=== PATIENT | female | born 1960 | race Caucasian/White ===

== ENCOUNTER → 2016-10-06 | Outpatient (CLI) | payer BC ==
[~2016-10-06] MED LIST: ATOR-24 PO
[2016-10-06 12:25] LABS: HEMATOCRIT 40.3 % (37-47); MEAN CELL VOLUME 88.4 fL (80-100); MEAN CORPUSCULAR HEMOGLOBIN 30.7 pg (25-34); MEAN CORPUSCULAR HGB CONC 34.7 g/dl (32-36); MEAN PLATELET VOLUME 11.5 fL (7.4-10.4); PLATELET COUNT 262 K/uL (130-400); RED BLOOD COUNT 4.56 M/uL (4.2-5.4); WHITE BLOOD COUNT 9.43 K/uL (4.8-10.8)
[2016-10-06 13:16] LABS: ALT/SGPT 73 U/L (12-78); BLOOD UREA NITROGEN 20 mg/dl (7-18); BUN/CREATININE RATIO 29.1 (10-20); CALCIUM 9.1 mg/dl (8.5-10.1); CARBON DIOXIDE 23 mmol/L (21-32); CHLORIDE 108 mmol/L (98-107); CHOLESTEROL 178 mg/dl (0-200); GLUCOSE 100 mg/dl (70-99); POTASSIUM 4.1 mmol/L (3.5-5.1); SODIUM 142 mmol/L (136-145); TRIGLYCERIDES 104 mg/dl (0-150); VERY LOW DENSITY LIPOPROT CALC 21 mg/dl
[2016-10-06 13:26] LABS: ALB/GLOB RATIO 1.3 (0.9-2); ALKALINE PHOSPHATASE 90 U/L (45-117); AST/SGOT 34 U/L (15-37); CHOLESTEROL/HDL RATIO 3.4; HDL CHOLESTEROL 53 mg/dl; LDL CHOLESTEROL CALCULATED 104 mg/dl
== END | disposition home or self-care (01) ==
LOC: C.LABPBG 07:49
PROVIDERS: ATTEND Neuromusculoskeletal Medicine & OMM
DX: E78.5 Hyperlipidemia, unspecified (principal); R63.5 Abnormal weight gain; Z00.00 Encounter for general adult medical examination without abnormal findings

== ENCOUNTER → 2017-03-03 | Day surgery (SDC) | payer BC ==
[2017-02-23 12:28] VITALS: Ht 154.9 cm; Wt 61.8 kg
[~2017-03-03] VITALS: Ht 154.9 cm; Wt 61.8 kg
[~2017-03-03] MED LIST changes: +LIDOCAINE HCL 2% 2 ML VIAL (20MG/ML) ONE; +MIDAZOLAM HCL 1 MG/ML 2ML VIAL ONE; +PROPOFOL IV EMULSION 10 MG/ML 20 ML VIAL IV ONE; +SODIUM CHLORIDE 0.9% 500ML 500 ML IV ONE
--- NOTE | 2017-03-03 09:50 | Endo History and Physical ---
History & Physical Date of Service: Mar 03, 2017. Chief Complaint: SCREENING FOR COLON CANCER Referring Physician: DR. CASSANDRA BOYCE History of Present Illness 56 yo CF who presents for screening colonoscopy. Past Surgical History Hx Cardiac Surgery: No Hx Internal Defibrillator: No Hx Pacemaker: No Hx Abdominal Surgery: Yes (HYSTERECTOMY BSO) Hx of Implantable Prosthesis: No Hx Post-Op Nausea and Vomiting: Yes Hx Cancer Surgery: No Hx Thoracic Surgery: No Hx Orthopedic: Yes ( ORIF L ANKLE) Hx Urinary Tract Surgery: No Family History Polyp, IBD Social History Smoking Status: Former Smoker Hx Substance Use: No Hx Alcohol Use: Yes (OCC SOCIAL) Allergies Coded Allergies: No Known Allergies (Verified , 03/03/17) Current Medications Reported Home Medications Medications Dose Route/Sig Max Daily Dose Days Date Category Lipitor (Atorvastatin Calcium) 40 Mg Tab 40 Mg PO QPM 02/23/17 Reported Vital Signs Weight (Kilograms): 61.82 Height (Feet): 5 Height (Inches): 1 Date Time Temp Pulse Resp B/P (MAP) Pulse Ox O2 Delivery O2 Flow Rate FiO2 03/03/17 09:06 36.6 67 20 121/86 (98) 20 Room Air Physical Exam General Appearance: WD/WN, no apparent distress Respiratory/Chest: Auscultation: breath sounds normal Cardiovascular: Heart Auscultation: RRR Abdomen: Bowel Sounds: normal Inspection & Palpation: soft, non-distended, no tenderness, guarding & rebound Assessment and Plan Assessment: 56 yo CF who presents for screening colonoscopy. Plan: Proceed with colonoscopy.
--- NOTE | 2017-03-03 10:22 | Discharge Instructions ---
Endoscopy Patient Instructions Date / Procedure(s) Performed Mar 03, 2017. Colonoscopy Allergy Information Coded Allergies: No Known Allergies (Verified , 03/03/17) Discharge Date / Findings Mar 03, 2017. Colon polyps Internal hemorrhoids Medication Instructions OK to resume all medications today as prescribed Reported Home Medications Medications Dose Route/Sig Max Daily Dose Days Date Category Lipitor (Atorvastatin Calcium) 40 Mg Tab 40 Mg PO QPM 02/23/17 Reported Provider Instructions Activity Restrictions - No exercising or heavy lifting for 24 hours. - Do not drink alcohol the day of the procedure. - Do not drive a car or operate machinery until the day after the procedure. - Do not make any important decisions or sign important papers in 24 hours after the procedure. Following Day: - Return to full activity which may include returning to work/school. Diet Start your diet with liquids and light foods (jello, soup, juice, toast). Then eat your usual diet if not nauseated. Treatment For Common After Affects For mild abdominal pain, bloating, or excessive gas: - Rest - Eat lightly - Lie on right side Follow-Up Information Follow-up with DR. CASSANDRA BOYCE as scheduled Anesthesia Information What You Should Know You have had a procedure that required some medicine to reduce anxiety and discomfort. This treatment is called moderate sedation. After receiving the treatment, you may be sleepy, but you will be able to breathe on your own. The effects of the treatment may last for several hours. Follow these instructions along with Activity/Diet recommendations noted above: * Do NOT do anything where dizziness or clumsiness would be dangerous. * Rest quietly at home today, then you can be up and about tomorrow. * Have a responsible person stay with you the rest of today. * You may have had an I.V. today. If so, you may take the dressing off later today. Recommendations Call your doctor if: * Trouble breathing * Continuous vomiting for more than 24 hours * Temperature above 101 degrees * Severe abdominal pain or bloating * Pain not relieved by pain medicine ordered * There is increased drainage or redness from any incision * A large amount of rectal bleeding greater than 2-3 tablespoons. (If you had a polyp/s removed or have hemorrhoids, a small amount of blood - from the rectum is to be expected.) * You have any unanswered questions or concerns. IN THE EVENT OF A SERIOUS EMERGENCY, GO TO THE NEAREST EMERGENCY ROOM Your discharge instructions were prepared by provider Torres Silva. Patient Instructions Signature Page Sierra Koheriberto Patient (or Guardian) Signature/Date: I have read and understand the instructions given to me by my caregivers. Caregiver/RN/Doctor Signature/Date: The above-named patient and/or guardian has received patient instructions on this date. + Original Patient Signature Page (only) stays with chart. Please make copy for patient.
--- NOTE | 2017-03-03 10:33 | Anesthesiology Progress Note ---
Anesthesia Post Op Note Date & Time Mar 03, 2017 at 10:33 Vital Signs Pain Intensity: 0 Vital Signs Past 12 Hours Date Time Temp Pulse Resp B/P (MAP) Pulse Ox O2 Delivery O2 Flow Rate FiO2 03/03/17 10:24 67 20 102/66 (78) 20 Room Air 03/03/17 09:06 36.6 67 20 121/86 (98) 20 Room Air Notes Mental Status: alert / awake / arousable, participated in evaluation Pt Amnestic to Procedure: Yes Nausea / Vomiting: adequately controlled Pain: adequately controlled Airway Patency, RR, SpO2: stable & adequate BP & HR: stable & adequate Hydration State: stable & adequate Anesthetic Complications: no major complications apparent
--- NOTE | 2017-03-03 10:47 | GI REPORT ---
Procedure Date: 03/03/2017 9:50 AM Procedure: Colonoscopy Indications: Screening for colorectal malignant neoplasm Medicines: Monitored Anesthesia Care Complications: No immediate complications. Estimated Blood Loss: Estimated blood loss: none. Procedure: Pre-Anesthesia Assessment: - Prior to the procedure, a History and Physical was performed, and patient medications and allergies were reviewed. The patient's tolerance of previous anesthesia was also reviewed. The risks and benefits of the procedure and the sedation options and risks were discussed with the patient. All questions were answered, and informed consent was obtained. Prior Anticoagulants: The patient has taken no previous anticoagulant or antiplatelet agents. ASA Grade Assessment: II - A patient with mild systemic disease. After reviewing the risks and benefits, the patient was deemed in satisfactory condition to undergo the procedure. After I obtained informed consent, the scope was passed under direct vision. Throughout the procedure, the patient's blood pressure, pulse, and oxygen saturations were monitored continuously. The Scope was introduced through the anus and advanced to the terminal ileum. The colonoscopy was performed without difficulty. The patient tolerated the procedure well. The quality of the bowel preparation was good. The terminal ileum, ileocecal valve, appendiceal orifice, and rectum were photographed. Findings: Five sessile polyps were found in the sigmoid colon. The polyps were 4 to 7 mm in size. These polyps were removed with a hot snare. Resection and retrieval were complete. Non-bleeding internal hemorrhoids were found during retroflexion. The hemorrhoids were small. Impression: - Five 4 to 7 mm polyps in the sigmoid colon, removed with a hot snare. Resected and retrieved. - Non-bleeding internal hemorrhoids. Recommendation: - Resume previous diet. - Continue present medications. - Repeat colonoscopy for surveillance based on pathology results. - Return to primary care physician as previously scheduled. Torres Silva DO 03/03/2017 10:47:06 AM This report has been signed electronically. Note Initiated On: 03/03/2017 9:50 AM I attest to the content of the Intraoperative Record and orders documented therein, exceptions below
[2017-03-03 10:55] VITALS: BP 129/80; PULSE 60; O2SAT 98
== END | disposition home or self-care (01) ==
LOC: C.GI 08:50
PROVIDERS: ATTEND Internal Medicine
DX: Z12.11 Encounter for screening for malignant neoplasm of colon (principal); D12.5 Benign neoplasm of sigmoid colon; K64.8 Other hemorrhoids; Z90.710 Acquired absence of both cervix and uterus; Z90.722 Acquired absence of ovaries, bilateral; Z90.79 Acquired absence of other genital organ(s)

== ENCOUNTER → 2017-03-28 | Outpatient (CLI) | payer BC ==
[~2017-03-28] MED LIST changes: -LIDOCAINE HCL 2% 2 ML VIAL (20MG/ML) ONE; -MIDAZOLAM HCL 1 MG/ML 2ML VIAL ONE; -PROPOFOL IV EMULSION 10 MG/ML 20 ML VIAL IV ONE; -SODIUM CHLORIDE 0.9% 500ML 500 ML IV ONE
--- NOTE | 2017-03-28 18:23 | DIAGNOSTIC IMAGING REPORT ---
LEFT SHOULDER MIN 2 VIEWS ROUTINE HISTORY: 56 years-old Female acute left shoulder pain status post fall. COMPARISON: None available TECHNIQUE: 3 views of the left shoulder FINDINGS: Mild glenohumeral and acromioclavicular osteoarthritis is noted without acute fracture or dislocation. No intra-articular loose body is identified. The imaged lung beck are clear. No radiopaque foreign body. IMPRESSION: Mild degenerative changes of the acromioclavicular and glenohumeral joints without acute fracture or dislocation. The above report was generated using voice recognition software. It may contain grammatical, syntax or spelling errors. Electronically signed by: Sagar Sierra M.D. 03/28/2017 6:21 PM Dictated Date/Time: 03/28/2017 6:20 PM
== END | disposition home or self-care (01) ==
LOC: C.RAD 17:35
PROVIDERS: ATTEND Physician Assistant
DX: M25.512 Pain in left shoulder (principal); M19.012 Primary osteoarthritis, left shoulder; Z91.81 History of falling

== ENCOUNTER → 2017-10-12 | Outpatient (CLI) | payer BC, OTHER ==
[2017-10-12 12:22] LABS: ALBUMIN 3.8 gm/dl (3.4-5.0); ALT/SGPT 34 U/L (12-78); AST/SGOT 21 U/L (15-37); BLOOD UREA NITROGEN 23 mg/dl (7-18); CALCIUM 9.1 mg/dl (8.5-10.1); CARBON DIOXIDE 28 mmol/L (21-32); CHOLESTEROL 239 mg/dl (0-200); CREATININE 0.83 mg/dl (0.60-1.20); GLUCOSE 96 mg/dl (70-99); POTASSIUM 4.1 mmol/L (3.5-5.1); SODIUM 141 mmol/L (136-145)
[2017-10-12 12:32] LABS: ALKALINE PHOSPHATASE 90 U/L (45-117); LDL CHOLESTEROL CALCULATED 169 mg/dl
== END | disposition home or self-care (01) ==
LOC: C.LABPBG 08:33
PROVIDERS: ATTEND Family Medicine
DX: E78.5 Hyperlipidemia, unspecified (principal); I10 Essential (primary) hypertension; Z11.59 Encounter for screening for other viral diseases